=== PATIENT | male | born 1970 | race African-American/Black ===

== ENCOUNTER 2020-01-09 01:50 | Inpatient (IN) ==
[2020-01-09] MEDS ORDERED: SODIUM CHLORIDE 0.9% 1,000 ML IV STA (03:27)
[2020-01-09] MEDS ORDERED: ONDANSETRON 4 MG/2 ML VIAL IV STA (03:27)
[2020-01-09 03:58] LABS: ABG Base Excess -9.7 MMOL/L (-2.5-2.5); ABG HCO3 16.6 MMOL/L (20-26); ABG Oxygen Saturation 89.5 % (95-100); ABG PCO2 32.7 MM HG (35-48); ABG PH 7.296 (7.35-7.45); ABG PO2 61.5 MM HG (80-95); ABG TCO2 14.5 MMOL/L (23-27); Allen Test Positive; Pt O2 Delivery Device Room Air
[2020-01-09 04:17] LABS: Basophils % 0.3 % (0.0-0.8); Hematocrit 35.2 VOL% (42.0-52.0); Hemoglobin 11.6 GM/DL (14.0-18.0); Immature Granulocytes % 0.2 %; Immature Granulocytes Absolute 0.01 #; Lymphocytes # 0.9 10*3/uL (1.4-4.0); Lymphocytes % 14.9 % (21.2-54.2); Mean Corpuscular Volume 93.4 FL (87-102); Mean Platelet Volume 10.5 FL (9.6-12.0); Monocytes % 6.1 % (1.7-12.7); Neutrophils % 78.5 % (38.7-73.9); Platelet Count 163 T/CUMM (130-400); Red Blood Count 3.77 MC/CUMM (3.8-5.5); Red Cell Distribution Width 13.4 % (9.3-17.3); White Blood Count 6.1 T/CUMM (4-12)
[2020-01-09 04:37] LABS: Alanine Aminotransferase 20 U/L (16-61); Albumin 3.1 G/DL (3.4-5.0); Alkaline Phosphatase 82 U/L (45-117); Aspartate Amino Transferase 33 U/L (0-37); Bilirubin,Total < 0.39 MG/DL (0.2-1.0); Blood Urea Nitrogen 56 MG/DL (7-18); Calcium 8.1 MG/DL (8.5-10.1); Estimated Glom Filtration Rate 7 ML/MIN; Osmolality,Calculated 281.1 MOS/KG (273-304); Total Protein 7.4 G/DL (6.4-8.3)
[2020-01-09 04:47] LABS: Glucose 34 MG/DL (74-106)
[2020-01-09] MEDS ORDERED: DEXTROSE 50% 25 GM/50 ML SYRINGE IV ONE ×2 (04:47→06:30)
[2020-01-09] MEDS ORDERED: DEXTROSE 50% 25 GM/50 ML VIAL IV STA ×2 (04:47→06:33)
[2020-01-09] MEDS ORDERED: SODIUM BICARB INJ 50 MEQ in DEXTROSE 5% NACL 0.45% 1,000 ML IV SCH ×2 (05:30→08:00)
[2020-01-09] MEDS ORDERED: SODIUM BICARBONATE 50 MEQ/50 ML VIAL IV STA (05:42)
[2020-01-09] MEDS ORDERED: GLUCAGON 1 MG VIAL IM PRN (05:54)
[2020-01-09] MEDS ORDERED: ONDANSETRON 4 MG/2 ML VIAL IV PRN (05:54)
[2020-01-09] MEDS ORDERED: DEXTROSE 10% 250 ML BAG IV PRN (05:59)
[2020-01-09] MEDS ORDERED: SODIUM BICARB INJ 50 MEQ in DEXTROSE 5% 1,000 ML IV SCH (06:00)
[2020-01-09] MEDS ORDERED: SODIUM BICARBONATE 50 MEQ/50 ML VIAL IV ONE (06:00)
[2020-01-09] MEDS: SODIUM BICARB INJ 50 MEQ in DEXTROSE 5% NACL 0.45% 1,000 ML IV SCH ×2 (06:50→14:38)
[2020-01-09 07:12] LABS: Apearance,Urine Slightly Hazy (Clear); Bacteria,Urine Occasional /HPF (Few); Bilirubin,Urine Negative (Negative); Blood, Urine Small mg/dL (Negative); Glucose,Urine (UA) 50 mg/dL (Negative); Ketones,Urine Negative (Negative); Mucus,Urine Occasional /LPF (Occasional); Nitrite,Urine Negative (Negative); Protein,Urine 100 MG/DL; RBC,Urine 3 /HPF (0-4); Urine Color Yellow (Yellow); Urine Specific Gravity 1.011 (1.001-1.035); Urine Urobilinogen < 2.0 EU/DL (0.2-1.0); WBC,Urine <1 /HPF (0-6)
[2020-01-09] MEDS: INSULIN REGULAR 100 UNIT/ML SUBCUT SCH ×4 (08:38→20:28)
[2020-01-09] MEDS: DEXTROSE 10% 500 ML IV SCH ×2 (09:06→14:38)
[2020-01-09] MEDS: POTASSIUM CHLORIDE 20 MEQ TABLET PO PRN (09:22)
[2020-01-09] MEDS: amLODIPine 10 MG TABLET PO SCH (09:22)
[2020-01-09] MEDS: PANTOPRAZOLE 40 MG TABLET PO SCH (09:22)
[2020-01-09 16:17] LABS: ABG HCO3 17.9 MMOL/L (20-26); ABG Oxygen Saturation 92.6 % (95-100); ABG PCO2 27.2 MM HG (35-48); ABG PH 7.377 (7.35-7.45); ABG PO2 65.3 MM HG (80-95); ABG TCO2 14.6 MMOL/L (23-27)
[2020-01-09] MEDS ORDERED: GLUCOSE GEL 15 GM TUBE PO PRN (16:29)
[2020-01-09] MEDS: GLUCOSE GEL 15 GM TUBE PO SCH ×7 (17:21→23:50)
[2020-01-09] MEDS: SODIUM BICARB INJ 100 MEQ in DEXTROSE 10% 1,000 ML IV SCH (18:10)
[2020-01-09] MEDS: FUROSEMIDE INJ 200 MG in SODIUM CHLORIDE 0.9% 50 ML IV SCH (20:06)
[2020-01-09] MEDS ORDERED: HYDROCORTISONE 100 MG VIAL IV ONE (20:45)
[2020-01-10] MEDS: GLUCOSE GEL 15 GM TUBE PO SCH ×8 (00:21→10:33)
[2020-01-10] MEDS: FUROSEMIDE INJ 200 MG in SODIUM CHLORIDE 0.9% 50 ML IV SCH ×4 (02:40→20:40)
[2020-01-10] MEDS: HYDROCORTISONE 100 MG VIAL IV SCH ×3 (04:50→20:40)
[2020-01-10 05:26] LABS: Hematocrit 30.9 VOL% (42.0-52.0); Hemoglobin 10.6 GM/DL (14.0-18.0); Immature Granulocytes % 0.5 %; Immature Granulocytes Absolute 0.02 #; Lymphocytes # 0.5 10*3/uL (1.4-4.0); Lymphocytes % 12.2 % (21.2-54.2); Mean Corpuscular HGB Conc 34.3 GM/DL (32-36); Mean Platelet Volume 11.3 FL (9.6-12.0); Monocytes % 3.5 % (1.7-12.7); Neutrophils % 83.8 % (38.7-73.9); Platelet Count 136 T/CUMM (130-400); Red Blood Count 3.47 MC/CUMM (3.8-5.5); Red Cell Distribution Width 13.1 % (9.3-17.3)
[2020-01-10 05:52] LABS: Calcium 7.1 MG/DL (8.5-10.1); Osmolality,Calculated 281.8 MOS/KG (273-304)
[2020-01-10] MEDS: SODIUM BICARB INJ 100 MEQ in DEXTROSE 10% 1,000 ML IV SCH (05:55)
[2020-01-10] MEDS: INSULIN REGULAR 100 UNIT/ML SUBCUT SCH ×5 (07:48→23:45)
[2020-01-10] MEDS: amLODIPine 10 MG TABLET PO SCH (08:34)
[2020-01-10] MEDS: PANTOPRAZOLE 40 MG TABLET PO SCH (08:35)
[2020-01-10] MEDS ORDERED: metOLazone 5 MG TABLET PO SCH ×2 (09:00→12:55)
[2020-01-10] MEDS: carvediloL 12.5 MG TABLET PO SCH ×2 (09:14→20:45)
[2020-01-10] MEDS: ASPIRIN EC 81 MG TABLET PO SCH (09:14)
[2020-01-10] MEDS: SODIUM BICARB INJ 100 MEQ in STERILE WATER INJ 1,000 ML IV SCH ×2 (09:57→21:34)
[2020-01-10] MEDS: POTASSIUM CHLORIDE 20 MEQ TABLET PO PRN ×3 (14:19→19:20)
[2020-01-10] MEDS: ENOXAPARIN 30 MG/0.3 ML SYRINGE SUBCUT SCH (16:51)
[2020-01-11] MEDS: INSULIN REGULAR 100 UNIT/ML SUBCUT SCH ×5 (04:01→22:11)
[2020-01-11 04:46] LABS: Basophils % 0.4 % (0.0-0.8); Hematocrit 32.4 VOL% (42.0-52.0); Hemoglobin 11.3 GM/DL (14.0-18.0); Immature Granulocytes % 0.4 %; Immature Granulocytes Absolute 0.02 #; Lymphocytes # 1.5 10*3/uL (1.4-4.0); Lymphocytes % 27.6 % (21.2-54.2); Mean Corpuscular HGB Conc 34.9 GM/DL (32-36); Mean Corpuscular Volume 88.5 FL (87-102); Mean Platelet Volume 11.2 FL (9.6-12.0); Monocytes % 5.6 % (1.7-12.7); Platelet Count 146 T/CUMM (130-400); Red Blood Count 3.66 MC/CUMM (3.8-5.5); Red Cell Distribution Width 12.9 % (9.3-17.3); White Blood Count 5.5 T/CUMM (4-12)
[2020-01-11 05:15] LABS: Calcium 7.9 MG/DL (8.5-10.1); Osmolality,Calculated 276.8 MOS/KG (273-304)
[2020-01-11] MEDS: HYDROCORTISONE 100 MG VIAL IV SCH (05:32)
[2020-01-11] MEDS: POTASSIUM CHLORIDE 20 MEQ TABLET PO PRN (06:52)
[2020-01-11] MEDS: SODIUM BICARB INJ 100 MEQ in STERILE WATER INJ 1,000 ML IV SCH (08:05)
[2020-01-11] MEDS: PANTOPRAZOLE 40 MG TABLET PO SCH (08:06)
[2020-01-11] MEDS: ASPIRIN EC 81 MG TABLET PO SCH (08:06)
[2020-01-11] MEDS: carvediloL 12.5 MG TABLET PO SCH ×2 (08:06→22:11)
[2020-01-11] MEDS: amLODIPine 10 MG TABLET PO SCH (08:06)
[2020-01-11] MEDS: FUROSEMIDE INJ 200 MG in SODIUM CHLORIDE 0.9% 50 ML IV SCH (08:06)
[2020-01-11] MEDS: HYDROCORTISONE 10 MG TABLET PO SCH ×2 (16:30→22:11)
[2020-01-11] MEDS: ENOXAPARIN 30 MG/0.3 ML SYRINGE SUBCUT SCH (16:30)
[2020-01-12 05:08] LABS: Calcium 8.1 MG/DL (8.5-10.1); Osmolality,Calculated 279.9 MOS/KG (273-304)
[2020-01-12] MEDS: ASPIRIN EC 81 MG TABLET PO SCH (09:42)
[2020-01-12] MEDS: INSULIN REGULAR 100 UNIT/ML SUBCUT SCH ×4 (09:42→21:27)
[2020-01-12] MEDS: HYDROCORTISONE 10 MG TABLET PO SCH ×3 (09:42→21:24)
[2020-01-12] MEDS: carvediloL 12.5 MG TABLET PO SCH ×2 (09:43→21:24)
[2020-01-12] MEDS: amLODIPine 10 MG TABLET PO SCH (09:43)
[2020-01-12] MEDS: PANTOPRAZOLE 40 MG TABLET PO SCH (09:43)
[2020-01-12] MEDS: ENOXAPARIN 30 MG/0.3 ML SYRINGE SUBCUT SCH (16:16)
[2020-01-12] MEDS ORDERED: MAGNESIUM CHLORIDE 64 MG TABLET PO SCH (21:00)
[2020-01-13 05:03] LABS: Hematocrit 33.9 VOL% (42.0-52.0); Hemoglobin 11.5 GM/DL (14.0-18.0); Immature Granulocytes % 0.7 %; Immature Granulocytes Absolute 0.04 #; Lymphocytes # 1.2 10*3/uL (1.4-4.0); Lymphocytes % 20.8 % (21.2-54.2); Mean Corpuscular HGB Conc 33.9 GM/DL (32-36); Mean Corpuscular Volume 90.9 FL (87-102); Mean Platelet Volume 11.8 FL (9.6-12.0); Monocytes % 4.9 % (1.7-12.7); Neutrophils % 73.6 % (38.7-73.9); Platelet Count 179 T/CUMM (130-400); Red Blood Count 3.73 MC/CUMM (3.8-5.5); Red Cell Distribution Width 12.7 % (9.3-17.3)
[2020-01-13 05:33] LABS: Osmolality,Calculated 287.7 MOS/KG (273-304)
[2020-01-13 05:39] LABS: Hypochromasia Slight
[2020-01-13 05:40] LABS: Microcytosis Slight; Ovalocytes Slight; Platelet Estimate Adequate
[2020-01-13 07:57] VITALS: BP 109/70
[2020-01-13] MEDS ORDERED: HYDROCORTISONE 10 MG TABLET PO SCH (21:00)
== END 2020-01-13 08:00 | disposition left against medical advice (07) | DRG 682 ==
LOC: N.ED 01:50 → SUATTDRO 05:54 → SUPCPDRO 05:54 → N.EDINP 05:54 → N.5E 06:17 → N.CC 16:50 → N.5E 01-11 14:52
PROVIDERS: ADMIT Internal Medicine; ATTEND Internal Medicine

== ENCOUNTER 2020-02-02 16:04 | Observation (INO) ==
[2020-02-02] MEDS ORDERED: DEXTROSE 10% 250 ML BAG IV PRN (16:27)
[2020-02-02] MEDS ORDERED: GLUCAGON 1 MG VIAL IM PRN (16:27)
[2020-02-02 17:10] LABS: Basophils % 0.2 % (0.0-0.8); Eosinophils % 0.6 % (0.00-10.9); Hematocrit 35.5 VOL% (42.0-52.0); Hemoglobin 11.1 GM/DL (14.0-18.0); Immature Granulocytes % 0.3 %; Immature Granulocytes Absolute 0.02 #; Lymphocytes # 0.9 10*3/uL (1.4-4.0); Lymphocytes % 13.9 % (21.2-54.2); Mean Corpuscular HGB Conc 31.3 GM/DL (32-36); Mean Corpuscular Volume 96.2 FL (87-102); Mean Platelet Volume 10.3 FL (9.6-12.0); Monocytes % 3.8 % (1.7-12.7); Neutrophils % 81.2 % (38.7-73.9); Platelet Count 210 T/CUMM (130-400); Red Blood Count 3.69 MC/CUMM (3.8-5.5); Red Cell Distribution Width 14.1 % (9.3-17.3); White Blood Count 6.4 T/CUMM (4-12)
[2020-02-02 17:26] LABS: Calcium 9.5 MG/DL (8.5-10.1); Osmolality,Calculated 278.8 MOS/KG (273-304)
[2020-02-02] MEDS ORDERED: DEXTROSE 50% 25 GM/50 ML VIAL IV STA (19:11)
[2020-02-02] MEDS ORDERED: DEXTROSE 50% 25 GM/50 ML SYRINGE IV ONE (19:14)
[2020-02-02] MEDS: DEXTROSE 10% 250 ML IV SCH (19:41)
[2020-02-02] MEDS ORDERED: ACETAMINOPHEN 325 MG TABLET PO PRN (19:51)
[2020-02-02] MEDS ORDERED: ONDANSETRON 4 MG/2 ML VIAL IV PRN (19:51)
[2020-02-02 19:56] LABS: Apearance,Urine CLEAR (Clear); Bacteria,Urine Occasional /HPF (Few); Bilirubin,Urine Negative (Negative); Blood, Urine Small mg/dL (Negative); Glucose,Urine (UA) 50 mg/dL (Negative); Hyaline Casts,Urine 3 /LPF (0-3); Ketones,Urine Negative (Negative); Mucus,Urine Occasional /LPF (Occasional); Nitrite,Urine Negative (Negative); Protein,Urine >=500 MG/DL; RBC,Urine 2 /HPF (0-4); Sperm,Urine Occasional /HPF (Negative); Urine Color Yellow (Yellow); Urine Specific Gravity 1.014 (1.001-1.035); Urine Urobilinogen < 2.0 EU/DL (0.2-1.0); WBC,Urine 2 /HPF (0-6)
[2020-02-02] MEDS: INSULIN REGULAR 100 UNIT/ML SUBCUT SCH (21:39)
[2020-02-02] MEDS: ENOXAPARIN 30 MG/0.3 ML SYRINGE SUBCUT SCH (23:47)
[2020-02-03] MEDS: DEXTROSE 10% 500 ML IV SCH ×2 (00:36→18:14)
[2020-02-03 08:33] LABS: Basophils % 0.4 % (0.0-0.8); Eosinophils # 0.2 10*3/uL (0.0-0.87); Eosinophils % 3.2 % (0.00-10.9); Hematocrit 30.9 VOL% (42.0-52.0); Hemoglobin 9.7 GM/DL (14.0-18.0); Immature Granulocytes % 0.4 %; Immature Granulocytes Absolute 0.02 #; Lymphocytes # 1.7 10*3/uL (1.4-4.0); Lymphocytes % 33.7 % (21.2-54.2); Mean Corpuscular HGB Conc 31.4 GM/DL (32-36); Mean Platelet Volume 10.4 FL (9.6-12.0); Monocytes % 5.2 % (1.7-12.7); Neutrophils % 57.1 % (38.7-73.9); Platelet Count 188 T/CUMM (130-400); Red Blood Count 3.22 MC/CUMM (3.8-5.5); Red Cell Distribution Width 14.3 % (9.3-17.3)
[2020-02-03 08:49] LABS: Calcium 8.8 MG/DL (8.5-10.1); Osmolality,Calculated 276.1 MOS/KG (273-304)
[2020-02-03] MEDS: ASPIRIN EC 81 MG TABLET PO SCH (10:31)
[2020-02-03] MEDS: LISINOPRIL/HCTZ 20-12.5 MG TABLET PO SCH (10:31)
[2020-02-03] MEDS: amLODIPine 10 MG TABLET PO SCH (10:31)
[2020-02-03] MEDS: PANTOPRAZOLE 40 MG TABLET PO SCH (10:32)
[2020-02-03] MEDS: INSULIN REGULAR 100 UNIT/ML SUBCUT SCH ×4 (10:33→20:43)
[2020-02-03] MEDS: DEXTROSE 10% 1,000 ML IV SCH (18:14)
[2020-02-03] MEDS: DEXTROSE 10% 250 ML IV SCH (20:42)
[2020-02-03] MEDS: ENOXAPARIN 30 MG/0.3 ML SYRINGE SUBCUT SCH (20:49)
[2020-02-04] MEDS: INSULIN REGULAR 100 UNIT/ML SUBCUT SCH ×2 (09:24→13:05)
[2020-02-04] MEDS: amLODIPine 10 MG TABLET PO SCH (09:25)
[2020-02-04] MEDS: PANTOPRAZOLE 40 MG TABLET PO SCH (09:25)
[2020-02-04] MEDS: LISINOPRIL/HCTZ 20-12.5 MG TABLET PO SCH (09:25)
[2020-02-04] MEDS: ASPIRIN EC 81 MG TABLET PO SCH (09:25)
[2020-02-04] MEDS: DEXTROSE 10% 1,000 ML IV SCH (13:02)
[2020-02-04 13:11] VITALS: BP 125/97
== END 2020-02-04 14:30 | disposition home or self-care (01) ==
LOC: EDUNIT# → EDBD → N.EDINP 16:04 → N.ED 16:04 → SUATTDRO 19:51 → N.EDINP 22:05 → N.4E 22:09
PROVIDERS: ADMIT Internal Medicine; ATTEND Internal Medicine Nephrology

== ENCOUNTER 2022-07-10 11:55 | Inpatient (IN) ==
[2022-07-10 13:13] LABS: Basophils % 0.2 % (0.0-0.8); Eosinophils % 0.2 % (0.00-10.9); Hematocrit 23.5 VOL% (42.0-52.0); Hemoglobin 7.6 GM/DL (14.0-18.0); Immature Granulocytes % 0.8 %; Immature Granulocytes Absolute 0.07 #; Lymphocytes # 0.4 10*3/uL (1.4-4.0); Lymphocytes % 4.5 % (21.2-54.2); Mean Corpuscular HGB Conc 32.3 GM/DL (32-36); Mean Platelet Volume 10.7 FL (9.6-12.0); Monocytes # 0.2 10*3/uL (0.11-0.8); Monocytes % 2.4 % (1.7-12.7); Neutrophils % 91.9 % (38.7-73.9); Platelet Count 183 T/CUMM (130-400); Red Cell Distribution Width 14.5 % (9.3-17.3); White Blood Count 8.8 T/CUMM (4-12)
[2022-07-10 13:30] LABS: Calcium 7.4 MG/DL (8.5-10.1); Osmolality,Calculated 299.1 MOS/KG (273-304); Potassium 4.5 MMOL/L (3.5-5.1)
[2022-07-10] MEDS ORDERED: DEXTROSE 50% 25 GM/50 ML SYRINGE IV ONE (13:36)
[2022-07-10] MEDS ORDERED: DEXTROSE 50% 25 GM/50 ML VIAL IV STA (13:39)
[2022-07-10 14:35] LABS: Lymphocytes 4 % (20-55); Polychromasia Slight; Total Cells Counted 100
[2022-07-10 14:36] LABS: Burr Cells Slight; Ovalocytes Few; Platelet Estimate Adequate; Schistocytes Slight
[2022-07-10] MEDS ORDERED: SODIUM CHLORIDE 0.9% 1,000 ML IV PRN (14:37)
[2022-07-10] MEDS ORDERED: hydrALAZINE 20 MG/1 ML VIAL IV PRN (14:52)
[2022-07-10] MEDS ORDERED: ONDANSETRON 4 MG/2 ML VIAL IV PRN (14:52)
[2022-07-10] MEDS ORDERED: MAGNESIUM SULFATE IV ONE (15:00)
[2022-07-10] MEDS: MAGNESIUM SULF RIDER 1 GM/100 ML PREMIX IV SCH ×3 (15:13→22:00)
[2022-07-10] MEDS: INSULIN LISPRO 100 UNIT/ML SUBCUT SCH ×2 (16:39→20:50)
[2022-07-10] MEDS: DOCUSATE SODIUM 100 MG CAPSULE PO SCH ×2 (16:58→20:49)
[2022-07-10] MEDS: PANTOPRAZOLE 40 MG TABLET PO SCH (16:58)
[2022-07-10 17:46] LABS: RBC,Urine 1 /HPF (0-4); Squamous Epithelial Cell,Urine Occasional /HPF (0-10)
[2022-07-10 17:47] LABS: Bilirubin,Urine Negative (Negative); Blood, Urine Trace mg/dL (Negative); Glucose,Urine (UA) 100 mg/dL (Negative); Ketones,Urine Negative (Negative); Nitrite,Urine Negative (Negative); Protein,Urine >=300 mg/dL (Negative); Urine Appearance Clear (Clear); Urine Color Yellow (Yellow); Urine Urobilinogen 0.2 eU/dL (<2.0); Urine pH 8.5 (4.5-8.0)
[2022-07-10] MEDS: ALBUTEROL/IPRATROPIUM 3 ML NEB RESP TX SCH (19:46)
[2022-07-10] MEDS: ENOXAPARIN 30 MG/0.3 ML SYRINGE SUBCUT SCH (20:50)
[2022-07-10] MEDS: SODIUM BICARBONATE 650 MG TABLET PO SCH (23:20)
[2022-07-10] MEDS: SODIUM BICARB INJ 100 MEQ in DEXTROSE 5% NACL 0.22% 1,000 ML IV SCH (23:21)
[2022-07-11] MEDS: ALBUTEROL/IPRATROPIUM 3 ML NEB RESP TX SCH ×4 (00:48→19:28)
[2022-07-11 04:34] LABS: Basophils % 0.1 % (0.0-0.8); Eosinophils # 0.1 10*3/uL (0.0-0.87); Eosinophils % 1.1 % (0.00-10.9); Hematocrit 22.5 VOL% (42.0-52.0); Hemoglobin 7.6 GM/DL (14.0-18.0); Immature Granulocytes % 0.8 %; Immature Granulocytes Absolute 0.07 #; Lymphocytes # 0.3 10*3/uL (1.4-4.0); Lymphocytes % 3.4 % (21.2-54.2); Mean Corpuscular HGB Conc 33.8 GM/DL (32-36); Mean Corpuscular Volume 90.7 FL (87-102); Mean Platelet Volume 10.8 FL (9.6-12.0); Monocytes # 0.3 10*3/uL (0.11-0.8); Monocytes % 3.5 % (1.7-12.7); Neutrophils % 91.1 % (38.7-73.9); Platelet Count 174 T/CUMM (130-400); Red Blood Count 2.48 MC/CUMM (3.8-5.5); Red Cell Distribution Width 14.6 % (9.3-17.3); White Blood Count 9.1 T/CUMM (4-12)
[2022-07-11 04:57] LABS: Eosinophils 1 % (0-10); Hypochromia 1+; Lymphocytes 3 % (20-55); Ovalocytes Slight; Platelet Estimate Normal; Total Cells Counted 100
[2022-07-11 05:15] LABS: Alanine Aminotransferase 15 U/L (16-61); Albumin 3.4 G/DL (3.4-5.0); Alkaline Phosphatase 112 U/L (45-117); Aspartate Amino Transferase 17 U/L (0-37); Bilirubin,Total < 0.39 MG/DL (0.20-1.00); Blood Urea Nitrogen 103 MG/DL (7-18); Calcium 6.9 MG/DL (8.5-10.1); Carbon Dioxide 9 MMOL/L (21-32); Chloride 108 MMOL/L (98-107); Cholesterol 124 MG/DL (50-200); HDL Cholesterol 40 MG/DL (40-60); Osmolality,Calculated 298.1 MOS/KG (273-304); Potassium 4.4 MMOL/L (3.5-5.1); Sodium 135 MMOL/L (136-145); Triglycerides 81 MG/DL (2-150); VLDL Cholesterol 16.2 MG/DL
[2022-07-11 05:18] LABS: Glucose 45 MG/DL (74-106)
[2022-07-11] MEDS: GLUCAGON 1 MG VIAL IM PRN ×2 (05:44→11:16)
[2022-07-11] MEDS: DEXTROSE 10% 250 ML BAG IV PRN ×3 (05:59→11:16)
[2022-07-11] MEDS: INSULIN LISPRO 100 UNIT/ML SUBCUT SCH ×4 (09:07→20:09)
[2022-07-11] MEDS: SODIUM BICARB INJ 100 MEQ in DEXTROSE 5% NACL 0.22% 1,000 ML IV SCH ×2 (09:07→19:18)
[2022-07-11] MEDS: SODIUM BICARBONATE 650 MG TABLET PO SCH ×3 (09:09→20:09)
[2022-07-11] MEDS: PANTOPRAZOLE 40 MG TABLET PO SCH (09:09)
[2022-07-11] MEDS: DOCUSATE SODIUM 100 MG CAPSULE PO SCH ×2 (09:09→20:09)
[2022-07-11] MEDS ORDERED: ETOMIDATE 40 MG/20 ML VIAL IV ONE (12:44)
[2022-07-11] MEDS ORDERED: propofoL 200 MG/20 ML VIAL IV ONE (12:44)
[2022-07-11] MEDS ORDERED: MIDAZOLAM 2 MG/2 ML VIAL ONE (12:44)
[2022-07-11] MEDS ORDERED: fentaNYL 100 MCG/2 ML VIAL ONE (12:44)
[2022-07-11] MEDS ORDERED: LIDOCAINE 2% 5 ML VIAL ONE (12:44)
[2022-07-11] MEDS ORDERED: CLINDAMYCIN INJ 900 MG/50 ML PREMIX IV ONE (12:50)
[2022-07-11] MEDS ORDERED: HEPARIN 5,000 UNIT/1 ML VIAL ONE (12:53)
[2022-07-11] MEDS ORDERED: TISSUE ADHESIVE 1 EACH APPLICATOR TOP ONE (12:53)
[2022-07-11] MEDS ORDERED: BUPIVACAINE 0.5% 50 ML VIAL ONE (12:53)
[2022-07-11] MEDS ORDERED: LIDOCAINE 1%/EPI INJ 20 ML VIAL ONE (12:53)
[2022-07-11] MEDS: amLODIPine 10 MG TABLET PO SCH (13:00)
[2022-07-11] MEDS: ATORVASTATIN 40 MG TABLET PO SCH (13:00)
[2022-07-11] MEDS ORDERED: DEXTROSE 50% 25 GM/50 ML SYRINGE IV ONE ×4 (13:36→16:50)
[2022-07-11 14:38] LABS: Hepatitis B Core IgM Quant 0.16 Index; Hepatitis B Surface Ag Quant < 0.10 Index; Hepatitis B Surface Ag Result Non-Reactive (NonReactive); Hepatitis C Virus Ab Quant 0.06 Index; Hepatitis C Virus Ab Result Non-Reactive (NonReactive)
[2022-07-11] MEDS: HYDROCORTISONE 100 MG VIAL IV SCH ×2 (15:05→20:09)
[2022-07-11] MEDS ORDERED: DEXTROSE 50% 25 GM/50 ML VIAL IV PRN (15:17)
[2022-07-11] MEDS: DEXTROSE 10% 1,000 ML IV SCH (16:01)
[2022-07-11] MEDS ORDERED: DEXTROSE 50% 25 GM/50 ML SYRINGE IV PRN (16:48)
[2022-07-11] MEDS ORDERED: HEPARIN 10,000 UNIT/10 ML VIAL IV ONE (20:00)
[2022-07-11] MEDS ORDERED: ACETAMINOPHEN 325 MG TABLET PO PRN (20:00)
[2022-07-11] MEDS: ENOXAPARIN 30 MG/0.3 ML SYRINGE SUBCUT SCH (20:09)
[2022-07-12] MEDS: ALBUTEROL/IPRATROPIUM 3 ML NEB RESP TX SCH ×4 (01:49→19:15)
[2022-07-12 04:06] LABS: Hematocrit 18.5 VOL% (42.0-52.0); Immature Granulocytes % 0.7 %; Immature Granulocytes Absolute 0.04 #; Lymphocytes # 0.2 10*3/uL (1.4-4.0); Lymphocytes % 3.4 % (21.2-54.2); Mean Corpuscular HGB Conc 34.1 GM/DL (32-36); Mean Corpuscular Volume 88.5 FL (87-102); Mean Platelet Volume 11.4 FL (9.6-12.0); Monocytes # 0.1 10*3/uL (0.11-0.8); Neutrophils % 93.9 % (38.7-73.9); Platelet Count 113 T/CUMM (130-400); Red Blood Count 2.09 MC/CUMM (3.8-5.5); Red Cell Distribution Width 14.1 % (9.3-17.3); White Blood Count 5.6 T/CUMM (4-12)
[2022-07-12 04:08] LABS: Hemoglobin 6.3 GM/DL (14.0-18.0)
[2022-07-12] MEDS: SODIUM BICARB INJ 100 MEQ in DEXTROSE 5% NACL 0.22% 1,000 ML IV SCH (04:10)
[2022-07-12] MEDS: DEXTROSE 10% 1,000 ML IV SCH (04:10)
[2022-07-12] MEDS: HYDROCORTISONE 100 MG VIAL IV SCH ×3 (04:24→21:22)
[2022-07-12 04:28] LABS: Alanine Aminotransferase 11 U/L (16-61); Albumin 2.8 G/DL (3.4-5.0); Alkaline Phosphatase 87 U/L (45-117); Aspartate Amino Transferase 21 U/L (0-37); Bilirubin,Total < 0.39 MG/DL (0.20-1.00); Blood Urea Nitrogen 43 MG/DL (7-18); Calcium 7.7 MG/DL (8.5-10.1); Carbon Dioxide 20 MMOL/L (21-32); Chloride 103 MMOL/L (98-107); Glucose 225 MG/DL (74-106); Osmolality,Calculated 285.2 MOS/KG (273-304); Potassium 3.5 MMOL/L (3.5-5.1); Sodium 134 MMOL/L (136-145); Total Protein 5.7 G/DL (6.4-8.2)
[2022-07-12 04:39] LABS: Band Neutrophils 1 % (0-10); Hypochromia Slight; Lymphocytes 2 % (20-55); Microcytosis Slight; Total Cells Counted 100
[2022-07-12] MEDS ORDERED: SODIUM CHLORIDE 0.9% 1,000 ML IV PRN (07:46)
[2022-07-12] MEDS: INSULIN LISPRO 100 UNIT/ML SUBCUT SCH ×5 (08:17→21:21)
[2022-07-12] MEDS: amLODIPine 10 MG TABLET PO SCH (09:44)
[2022-07-12] MEDS: PANTOPRAZOLE 40 MG TABLET PO SCH (09:44)
[2022-07-12] MEDS: ATORVASTATIN 40 MG TABLET PO SCH (09:44)
[2022-07-12] MEDS: SODIUM BICARBONATE 650 MG TABLET PO SCH ×3 (09:44→21:21)
[2022-07-12] MEDS: DOCUSATE SODIUM 100 MG CAPSULE PO SCH ×2 (09:46→21:21)
[2022-07-12] MEDS ORDERED: MAGNESIUM SULF RIDER 2 GM/50 ML PREMIX IV ONE (10:04)
[2022-07-12] MEDS ORDERED: POTASSIUM CHLORIDE 20 MEQ TABLET PO ONE (10:04)
[2022-07-12] MEDS: ENOXAPARIN 30 MG/0.3 ML SYRINGE SUBCUT SCH (21:22)
[2022-07-12] MEDS: ZALEPLON 5 MG CAPSULE PO PRN (22:33)
[2022-07-13] MEDS: ALBUTEROL/IPRATROPIUM 3 ML NEB RESP TX SCH ×4 (00:15→19:08)
[2022-07-13] MEDS: INSULIN LISPRO 100 UNIT/ML SUBCUT SCH ×6 (00:31→20:54)
[2022-07-13 06:21] LABS: Hematocrit 21.4 VOL% (42.0-52.0); Hemoglobin 7.2 GM/DL (14.0-18.0); Immature Granulocytes % 0.8 %; Immature Granulocytes Absolute 0.07 #; Lymphocytes # 0.6 10*3/uL (1.4-4.0); Lymphocytes % 6.8 % (21.2-54.2); Mean Corpuscular HGB Conc 33.6 GM/DL (32-36); Mean Corpuscular Volume 91.1 FL (87-102); Mean Platelet Volume 11.4 FL (9.6-12.0); Monocytes # 0.5 10*3/uL (0.11-0.8); Monocytes % 5.2 % (1.7-12.7); Neutrophils % 87.2 % (38.7-73.9); Platelet Count 118 T/CUMM (130-400); Red Blood Count 2.35 MC/CUMM (3.8-5.5); White Blood Count 8.6 T/CUMM (4-12)
[2022-07-13 06:34] LABS: Alanine Aminotransferase 14 U/L (16-61); Albumin 2.8 G/DL (3.4-5.0); Alkaline Phosphatase 88 U/L (45-117); Aspartate Amino Transferase 25 U/L (0-37); Bilirubin,Total < 0.39 MG/DL (0.20-1.00); Blood Urea Nitrogen 57 MG/DL (7-18); Calcium 7.8 MG/DL (8.5-10.1); Carbon Dioxide 22 MMOL/L (21-32); Chloride 104 MMOL/L (98-107); Glucose 208 MG/DL (74-106); Osmolality,Calculated 294.8 MOS/KG (273-304); Potassium 4.6 MMOL/L (3.5-5.1); Sodium 137 MMOL/L (136-145); Total Protein 5.9 G/DL (6.4-8.2)
[2022-07-13] MEDS ORDERED: EPOETIN ALFA-EPBX 3,000 UNIT/ML VIAL IV PRN (09:20)
[2022-07-13] MEDS: DOCUSATE SODIUM 100 MG CAPSULE PO SCH ×2 (10:03→20:54)
[2022-07-13] MEDS: HYDROCORTISONE 100 MG VIAL IV SCH (10:03)
[2022-07-13] MEDS: SODIUM BICARBONATE 650 MG TABLET PO SCH (10:03)
[2022-07-13] MEDS ORDERED: HEPARIN 10,000 UNIT/10 ML VIAL IV SCH (10:45)
[2022-07-13] MEDS: ATORVASTATIN 40 MG TABLET PO SCH (15:11)
[2022-07-13] MEDS: amLODIPine 10 MG TABLET PO SCH (15:11)
[2022-07-13] MEDS: PANTOPRAZOLE 40 MG TABLET PO SCH (15:19)
[2022-07-13] MEDS: ZALEPLON 5 MG CAPSULE PO PRN (20:55)
[2022-07-13] MEDS: HEPARIN 5,000 UNIT/1 ML VIAL SUBCUT SCH (21:55)
[2022-07-14] MEDS: ALBUTEROL/IPRATROPIUM 3 ML NEB RESP TX SCH ×4 (00:08→19:12)
[2022-07-14 06:05] LABS: Basophils % 0.2 % (0.0-0.8); Eosinophils # 0.3 10*3/uL (0.0-0.87); Eosinophils % 3.3 % (0.00-10.9); Hematocrit 25.6 VOL% (42.0-52.0); Hemoglobin 8.2 GM/DL (14.0-18.0); Immature Granulocytes % 1.1 %; Immature Granulocytes Absolute 0.09 #; Lymphocytes % 12.5 % (21.2-54.2); Mean Corpuscular Volume 91.4 FL (87-102); Mean Platelet Volume 10.9 FL (9.6-12.0); Monocytes # 0.6 10*3/uL (0.11-0.8); Monocytes % 7.2 % (1.7-12.7); Neutrophils % 75.7 % (38.7-73.9); Platelet Count 95 T/CUMM (130-400); Red Cell Distribution Width 16.7 % (9.3-17.3); White Blood Count 8.1 T/CUMM (4-12)
[2022-07-14 06:17] LABS: Calcium 7.3 MG/DL (8.5-10.1); Osmolality,Calculated 281.8 MOS/KG (273-304); Potassium 4.9 MMOL/L (3.5-5.1)
[2022-07-14 06:23] LABS: Hypochromia 1+
[2022-07-14 06:24] LABS: Microcytosis 1+; Platelet Estimate Decreased
[2022-07-14] MEDS: INSULIN LISPRO 100 UNIT/ML SUBCUT SCH ×4 (08:22→21:40)
[2022-07-14] MEDS: HEPARIN 5,000 UNIT/1 ML VIAL SUBCUT SCH ×2 (09:00→21:38)
[2022-07-14] MEDS: DOCUSATE SODIUM 100 MG CAPSULE PO SCH ×2 (09:00→21:37)
[2022-07-14] MEDS: amLODIPine 10 MG TABLET PO SCH (14:34)
[2022-07-14] MEDS: ATORVASTATIN 40 MG TABLET PO SCH (14:34)
[2022-07-14] MEDS: ASPIRIN EC 81 MG TABLET PO SCH (14:34)
[2022-07-14] MEDS: ZALEPLON 5 MG CAPSULE PO PRN (21:37)
[2022-07-15] MEDS: ALBUTEROL/IPRATROPIUM 3 ML NEB RESP TX SCH ×2 (00:05→07:30)
[2022-07-15 06:55] LABS: Basophils % 0.6 % (0.0-0.8); Eosinophils # 0.4 10*3/uL (0.0-0.87); Eosinophils % 5.6 % (0.00-10.9); Hematocrit 26.2 VOL% (42.0-52.0); Hemoglobin 8.3 GM/DL (14.0-18.0); Immature Granulocytes % 1.1 %; Immature Granulocytes Absolute 0.08 #; Lymphocytes # 1.5 10*3/uL (1.4-4.0); Lymphocytes % 20.9 % (21.2-54.2); Mean Corpuscular HGB Conc 31.7 GM/DL (32-36); Mean Corpuscular Volume 93.9 FL (87-102); Mean Platelet Volume 11.8 FL (9.6-12.0); Monocytes # 0.7 10*3/uL (0.11-0.8); Monocytes % 9.4 % (1.7-12.7); Neutrophils % 62.4 % (38.7-73.9); Platelet Count 104 T/CUMM (130-400); Red Blood Count 2.79 MC/CUMM (3.8-5.5); Red Cell Distribution Width 16.4 % (9.3-17.3); White Blood Count 7.1 T/CUMM (4-12)
[2022-07-15 07:15] LABS: Calcium 7.9 MG/DL (8.5-10.1); Osmolality,Calculated 279.8 MOS/KG (273-304); Potassium 4.8 MMOL/L (3.5-5.1)
[2022-07-15] MEDS: INSULIN LISPRO 100 UNIT/ML SUBCUT SCH ×2 (07:50→12:43)
[2022-07-15 08:18] VITALS: BP 122/72
[2022-07-15] MEDS: ATORVASTATIN 40 MG TABLET PO SCH (09:37)
[2022-07-15] MEDS: DOCUSATE SODIUM 100 MG CAPSULE PO SCH (09:37)
[2022-07-15] MEDS: amLODIPine 10 MG TABLET PO SCH (09:37)
[2022-07-15] MEDS: ASPIRIN EC 81 MG TABLET PO SCH (09:38)
[2022-07-15] MEDS: HEPARIN 5,000 UNIT/1 ML VIAL SUBCUT SCH (09:41)
== END 2022-07-15 13:08 | disposition home or self-care (01) | DRG 674 ==
LOC: N.ED 11:55 → N.EDINP 13:52 → SUATTDRO 14:52 → N.EDINP 14:52 → N.TELEN 15:59 → N.ICU 07-11 14:09 → N.5E 07-12 14:56
PROVIDERS: ADMIT Internal Medicine; ATTEND Internal Medicine

== ENCOUNTER 2022-07-20 08:02 | Inpatient (IN) ==
[2022-07-20 08:38] LABS: Basophils % 0.2 % (0.0-0.8); Eosinophils % 0.2 % (0.00-10.9); Hematocrit 30.3 VOL% (42.0-52.0); Hemoglobin 9.4 GM/DL (14.0-18.0); Immature Granulocytes % 1.5 %; Immature Granulocytes Absolute 0.14 #; Lymphocytes # 0.7 10*3/uL (1.4-4.0); Lymphocytes % 7.6 % (21.2-54.2); Mean Corpuscular Volume 95.9 FL (87-102); Mean Platelet Volume 10.7 FL (9.6-12.0); Monocytes # 0.4 10*3/uL (0.11-0.8); Monocytes % 4.5 % (1.7-12.7); Platelet Count 185 T/CUMM (130-400); Red Blood Count 3.16 MC/CUMM (3.8-5.5); Red Cell Distribution Width 15.4 % (9.3-17.3); White Blood Count 9.6 T/CUMM (4-12)
[2022-07-20 08:46] LABS: Arterial Base Excess iSTAT 0 MMOL/L (-2.5-2.5); Arterial Bicarbonate iSTAT 25.1 MMOL/L (20-26); Arterial O2 Saturation iSTAT 95 % (95-100); Arterial PCO2 iSTAT 42 MM HG (35-48); Arterial PO2 iSTAT 78 MM HG (80-95); Arterial Total CO2 iSTAT 26 MMO/L (23-27); Arterial pH iSTAT 7.386 (7.35-7.45)
[2022-07-20] MEDS ORDERED: AMMONIA INHALANT 1 EACH AMP INH ONE (08:47)
[2022-07-20 08:51] LABS: Albumin 3.4 G/DL (3.4-5.0); Bilirubin,Total 0.4 MG/DL (0.20-1.00); Calcium 8.6 MG/DL (8.5-10.1); Potassium 4.2 MMOL/L (3.5-5.1); Total Protein 7.6 G/DL (6.4-8.2)
[2022-07-20 08:58] LABS: Bacteria,Urine Occasional /HPF (Few); Bilirubin,Urine Negative (Negative); Blood, Urine Negative (Negative); Glucose,Urine (UA) Negative (Negative); Ketones,Urine Negative (Negative); Nitrite,Urine Negative (Negative); Protein,Urine >=300 mg/dL (Negative); RBC,Urine 2 /HPF (0-4); Squamous Epithelial Cell,Urine Occasional /HPF (0-10); Urine Appearance Clear (Clear); Urine Color Yellow (Yellow); Urine Urobilinogen 0.2 eU/dL (<2.0); Urine pH 8.5 (4.5-8.0)
[2022-07-20 09:04] LABS: Barbiturates Screen,Urine Negative (Negative); Benzodiazepines Screen,Urine Negative (Negative); Cannabinoid Screen,Urine Negative (Negative); Opiate Screen,Urine Negative (Negative); Phencyclidine Screen,Urine Negative (Negative)
[2022-07-20] MEDS ORDERED: DEXTROSE 50% 25 GM/50 ML VIAL IV STA (11:15)
[2022-07-20] MEDS ORDERED: DEXTROSE 50% 25 GM/50 ML SYRINGE IV ONE (11:16)
[2022-07-20] MEDS ORDERED: GLUCAGON 1 MG VIAL IM PRN (11:23)
[2022-07-20] MEDS ORDERED: hydrALAZINE 20 MG/1 ML VIAL IV PRN (11:23)
[2022-07-20] MEDS ORDERED: ONDANSETRON 4 MG/2 ML VIAL IV PRN (11:23)
[2022-07-20] MEDS ORDERED: ACETAMINOPHEN 325 MG TABLET PO PRN (11:23)
[2022-07-20] MEDS ORDERED: DEXTROSE 10% 1,000 ML IV SCH ×2 (11:30→12:00)
[2022-07-20] MEDS ORDERED: DEXTROSE 50% 25 GM/50 ML SYRINGE IV PRN (11:42)
[2022-07-20] MEDS ORDERED: levETIRAcetam 500 MG/5 ML VIAL IV ONE (11:56)
[2022-07-20] MEDS ORDERED: HEPARIN 10,000 UNIT/10 ML VIAL IV PRN (14:25)
[2022-07-20] MEDS: HEPARIN 5,000 UNIT/1 ML VIAL SUBCUT SCH (19:00)
[2022-07-20] MEDS: cloNIDine 0.1 MG TABLET PO SCH (21:06)
[2022-07-21] MEDS: cloNIDine 0.1 MG TABLET PO SCH ×2 (00:18→22:13)
[2022-07-21] MEDS: HEPARIN 5,000 UNIT/1 ML VIAL SUBCUT SCH ×2 (00:45→22:18)
[2022-07-21 05:53] LABS: Basophils % 0.4 % (0.0-0.8); Eosinophils # 0.1 10*3/uL (0.0-0.87); Eosinophils % 0.7 % (0.00-10.9); Hematocrit 26.1 VOL% (42.0-52.0); Hemoglobin 8.2 GM/DL (14.0-18.0); Immature Granulocytes Absolute 0.08 #; Lymphocytes # 0.5 10*3/uL (1.4-4.0); Lymphocytes % 6.5 % (21.2-54.2); Mean Corpuscular HGB Conc 31.4 GM/DL (32-36); Mean Corpuscular Volume 94.2 FL (87-102); Mean Platelet Volume 11.1 FL (9.6-12.0); Monocytes # 0.2 10*3/uL (0.11-0.8); Monocytes % 2.1 % (1.7-12.7); Neutrophils % 89.3 % (38.7-73.9); Platelet Count 154 T/CUMM (130-400); Red Blood Count 2.77 MC/CUMM (3.8-5.5); Red Cell Distribution Width 15.3 % (9.3-17.3); White Blood Count 8.3 T/CUMM (4-12)
[2022-07-21 06:07] LABS: Calcium 8.3 MG/DL (8.5-10.1); Potassium 4.5 MMOL/L (3.5-5.1)
[2022-07-21] MEDS: ASPIRIN EC 81 MG TABLET PO SCH (09:27)
[2022-07-21] MEDS: PANTOPRAZOLE 40 MG TABLET PO SCH (09:27)
[2022-07-21] MEDS: amLODIPine 10 MG TABLET PO SCH (09:27)
[2022-07-21] MEDS: ATORVASTATIN 40 MG TABLET PO SCH (22:14)
[2022-07-22 05:25] LABS: Calcium 7.7 MG/DL (8.5-10.1); Osmolality,Calculated 286.8 MOS/KG (273-304); Potassium 4.5 MMOL/L (3.5-5.1)
[2022-07-22 06:12] LABS: Basophils % 0.3 % (0.0-0.8); Eosinophils # 0.1 10*3/uL (0.0-0.87); Eosinophils % 1.3 % (0.00-10.9); Hematocrit 22.3 VOL% (42.0-52.0); Hemoglobin 7.2 GM/DL (14.0-18.0); Immature Granulocytes % 0.8 %; Immature Granulocytes Absolute 0.06 #; Lymphocytes # 2.1 10*3/uL (1.4-4.0); Mean Corpuscular HGB Conc 32.3 GM/DL (32-36); Mean Corpuscular Volume 94.9 FL (87-102); Mean Platelet Volume 10.6 FL (9.6-12.0); Monocytes # 0.5 10*3/uL (0.11-0.8); Monocytes % 6.4 % (1.7-12.7); Neutrophils % 65.2 % (38.7-73.9); Platelet Count 155 T/CUMM (130-400); Red Blood Count 2.35 MC/CUMM (3.8-5.5)
[2022-07-22] MEDS ORDERED: SODIUM CHLORIDE 0.9% 1,000 ML IV PRN (07:34)
[2022-07-22] MEDS ORDERED: HEPARIN 10,000 UNIT/10 ML VIAL IV PRN (10:00)
[2022-07-22] MEDS: amLODIPine 10 MG TABLET PO SCH (13:17)
[2022-07-22] MEDS: ASPIRIN EC 81 MG TABLET PO SCH (13:37)
[2022-07-22] MEDS: HEPARIN 5,000 UNIT/1 ML VIAL SUBCUT SCH ×2 (13:37→20:37)
[2022-07-22] MEDS: PANTOPRAZOLE 40 MG TABLET PO SCH (13:37)
[2022-07-22] MEDS: cloNIDine 0.1 MG TABLET PO SCH (20:37)
[2022-07-22] MEDS: ATORVASTATIN 40 MG TABLET PO SCH (20:37)
[2022-07-23 05:50] LABS: Basophils % 0.6 % (0.0-0.8); Eosinophils # 0.1 10*3/uL (0.0-0.87); Hematocrit 28.5 VOL% (42.0-52.0); Hemoglobin 8.9 GM/DL (14.0-18.0); Immature Granulocytes % 0.8 %; Immature Granulocytes Absolute 0.05 #; Lymphocytes # 1.1 10*3/uL (1.4-4.0); Lymphocytes % 16.6 % (21.2-54.2); Mean Corpuscular HGB Conc 31.2 GM/DL (32-36); Mean Corpuscular Volume 94.4 FL (87-102); Mean Platelet Volume 10.8 FL (9.6-12.0); Monocytes # 0.5 10*3/uL (0.11-0.8); Monocytes % 7.2 % (1.7-12.7); Neutrophils % 72.8 % (38.7-73.9); Platelet Count 140 T/CUMM (130-400); Red Blood Count 3.02 MC/CUMM (3.8-5.5); Red Cell Distribution Width 15.1 % (9.3-17.3); White Blood Count 6.6 T/CUMM (4-12)
[2022-07-23 06:11] LABS: Calcium 8.1 MG/DL (8.5-10.1); Osmolality,Calculated 285.7 MOS/KG (273-304); Potassium 4.5 MMOL/L (3.5-5.1)
[2022-07-23] MEDS: PANTOPRAZOLE 40 MG TABLET PO SCH (08:08)
[2022-07-23] MEDS: amLODIPine 10 MG TABLET PO SCH (08:08)
[2022-07-23] MEDS: ASPIRIN EC 81 MG TABLET PO SCH (08:08)
[2022-07-23] MEDS: HEPARIN 5,000 UNIT/1 ML VIAL SUBCUT SCH (08:09)
[2022-07-23 12:07] VITALS: BP 102/58
== END 2022-07-23 13:16 | disposition home or self-care (01) | DRG 638 ==
LOC: N.ED 08:02 → SUATTDRO 11:36 → N.5E 11:36
PROVIDERS: ADMIT Internal Medicine; ATTEND Internal Medicine

== ENCOUNTER 2022-12-08 11:45 | Inpatient (IN) ==
[2022-12-08 13:20] LABS: Basophils % 0.2 % (0.0-0.8); Eosinophils # 0.1 10*3/uL (0.0-0.87); Eosinophils % 0.3 % (0.00-10.9); Immature Granulocytes % 3.5 %; Lymphocytes # 0.9 10*3/uL (1.4-4.0); Lymphocytes % 4.6 % (21.2-54.2); Mean Corpuscular HGB Conc 33.3 GM/DL (32-36); Mean Corpuscular Volume 102.4 FL (87-102); Mean Platelet Volume 9.4 FL (9.6-12.0); Monocytes # 0.4 10*3/uL (0.11-0.8); Monocytes % 1.8 % (1.7-12.7); NRBC # 0.16 10*3/uL; Neutrophils % 89.6 % (38.7-73.9); Platelet Count 355 T/CUMM (130-400); Red Blood Count 1.26 MC/CUMM (3.8-5.5); Red Cell Distribution Width 20.3 % (9.3-17.3); White Blood Count 20.2 T/CUMM (4-12)
[2022-12-08 13:25] LABS: Hemoglobin 4.3 GM/DL (14.0-18.0)
[2022-12-08 13:26] LABS: Hematocrit 12.9 VOL% (42.0-52.0)
[2022-12-08] MEDS ORDERED: cefTRIAXone 1,000 MG in SODIUM CHLORIDE 0.9% 100 ML IV STA (13:37)
[2022-12-08] MEDS ORDERED: SODIUM CHLORIDE 0.9% 1,000 ML IV PRN (13:38)
[2022-12-08 13:39] LABS: Albumin 2.5 G/DL (3.4-5.0); Calcium 7.8 MG/DL (8.5-10.1); Osmolality,Calculated 297.5 MOS/KG (273-304); Potassium 4.7 MMOL/L (3.5-5.1); Total Protein 5.7 G/DL (6.4-8.2)
[2022-12-08] MEDS ORDERED: GLUCAGON 1 MG VIAL IM PRN (14:22)
[2022-12-08] MEDS ORDERED: DEXTROSE 10% 250 ML BAG IV PRN (14:22)
[2022-12-08 15:00] LABS: Urine Appearance Clear (Clear); Urine Color Yellow (Yellow); Urine Specific Gravity 1.015 (1.001-1.035)
[2022-12-08 15:01] LABS: Glucose,Urine (UA) Negative (Negative); Ketones,Urine Negative (Negative); Protein,Urine 100 mg/dL (Negative)
[2022-12-08 15:02] LABS: % Iron Saturation 97.3 % (18-50)
[2022-12-08 15:03] LABS: Bilirubin,Urine Negative (Negative); Blood, Urine Small mg/dL (Negative); Nitrite,Urine Negative (Negative); Urine Urobilinogen 0.2 eU/dL (<2.0)
[2022-12-08 15:04] LABS: RBC,Urine 2 /HPF (0-4); Squamous Epithelial Cell,Urine Occasional /HPF (0-10)
[2022-12-08 15:39] LABS: Eosinophils 1 % (0-10); Lymphocytes 6 % (20-55)
[2022-12-08 15:42] LABS: Macrocytosis Slight; Ovalocytes Few; Polychromasia Few
[2022-12-08 15:44] LABS: Burr Cells Slight; Platelet Estimate Increased
[2022-12-08 15:45] LABS: Anisocytosis 1+
[2022-12-08 15:47] LABS: Basophilic Stippling Few
[2022-12-08 15:47] LABS: Hepatitis B Core IgM Quant 0.08 Index; Hepatitis B Surface Ag Quant < 0.10 Index; Hepatitis B Surface Ag Result Non-Reactive (NonReactive); Hepatitis C Virus Ab Quant < 0.02 Index; Hepatitis C Virus Ab Result Non-Reactive (NonReactive)
[2022-12-08 15:48] LABS: Total Cells Counted 100
[2022-12-08] MEDS: INSULIN LISPRO 100 UNIT/ML SUBCUT SCH ×2 (17:17→21:26)
[2022-12-08] MEDS: ACETAMINOPHEN 325 MG TABLET PO PRN (17:23)
[2022-12-08] MEDS: DOXYCYCLINE HYCLATE 100 MG CAPSULE PO SCH (21:23)
[2022-12-09 05:54] LABS: Basophils % 0.2 % (0.0-0.8); Eosinophils # 0.1 10*3/uL (0.0-0.87); Eosinophils % 0.4 % (0.00-10.9); Immature Granulocytes % 7.5 %; Immature Granulocytes Absolute 1.29 #; Lymphocytes # 1.1 10*3/uL (1.4-4.0); Lymphocytes % 6.4 % (21.2-54.2); Mean Corpuscular HGB Conc 33.5 GM/DL (32-36); Mean Corpuscular Volume 101.3 FL (87-102); Monocytes # 0.5 10*3/uL (0.11-0.8); Monocytes % 2.8 % (1.7-12.7); NRBC # 0.32 10*3/uL; Neutrophils % 82.7 % (38.7-73.9); Platelet Count 311 T/CUMM (130-400); Red Blood Count 1.56 MC/CUMM (3.8-5.5); Red Cell Distribution Width 18.8 % (9.3-17.3); White Blood Count 17.1 T/CUMM (4-12)
[2022-12-09 06:01] LABS: Hematocrit 15.8 VOL% (42.0-52.0); Hemoglobin 5.3 GM/DL (14.0-18.0)
[2022-12-09 06:27] LABS: Albumin 2.6 G/DL (3.4-5.0); Bilirubin,Total 0.8 MG/DL (0.20-1.00); Calcium 7.9 MG/DL (8.5-10.1); Osmolality,Calculated 300.7 MOS/KG (273-304); Total Protein 5.2 G/DL (6.4-8.2)
[2022-12-09 06:45] LABS: Eosinophils 1 % (0-10); Lymphocytes 5 % (20-55); Nucleated Red Blood Cells 1 /100 WBC (0-5); Total Cells Counted 100
[2022-12-09 06:46] LABS: Hypochromia 1+; Macrocytosis Slight; Platelet Estimate Adequate
[2022-12-09] MEDS: INSULIN LISPRO 100 UNIT/ML SUBCUT SCH ×4 (07:43→21:18)
[2022-12-09] MEDS: NON-FORMULARY MEDICATION (Sucroferric Oxyhydroxide [Velphoro] 500 mg tablet,chewable) PO SCH ×3 (09:21→16:02)
[2022-12-09] MEDS: ACETAMINOPHEN 325 MG TABLET PO PRN (10:35)
[2022-12-09] MEDS ORDERED: HEPARIN 10,000 UNIT/10 ML VIAL IV PRN (12:18)
[2022-12-09] MEDS: amLODIPine 10 MG TABLET PO SCH (15:07)
[2022-12-09] MEDS: ASPIRIN EC 81 MG TABLET PO SCH (15:07)
[2022-12-09] MEDS: PANTOPRAZOLE 40 MG TABLET PO SCH (15:07)
[2022-12-09] MEDS: DOXYCYCLINE HYCLATE 100 MG CAPSULE PO SCH ×2 (15:08→21:23)
[2022-12-09] MEDS: cefTRIAXone 1,000 MG in SODIUM CHLORIDE 0.9% 100 ML IV SCH (16:33)
[2022-12-09 17:13] LABS: Hematocrit 22.4 VOL% (42.0-52.0); Hemoglobin 7.9 GM/DL (14.0-18.0)
[2022-12-09] MEDS: HEPARIN DRIP 25,000 UNITS/500 ML PREMIX IV SCH (18:22)
[2022-12-09] MEDS: oxyCODONE/ACETAMINOPHEN 5-325 MG TABLET PO PRN (18:25)
[2022-12-09 21:48] LABS: INR 2.2; PT Patient Result 23.1 SECS (10.1-12.1); Partial Thromboplastin Time 87.1 SECS (23.7-32.9)
[2022-12-10] MEDS: oxyCODONE/ACETAMINOPHEN 5-325 MG TABLET PO PRN (01:39)
[2022-12-10 03:23] LABS: Basophils % 0.1 % (0.0-0.8); Eosinophils # 0.1 10*3/uL (0.0-0.87); Eosinophils % 0.7 % (0.00-10.9); Hematocrit 20.6 VOL% (42.0-52.0); Hemoglobin 7.2 GM/DL (14.0-18.0); Immature Granulocytes % 4.6 %; Lymphocytes # 1.2 10*3/uL (1.4-4.0); Lymphocytes % 7.6 % (21.2-54.2); Mean Corpuscular Volume 92.8 FL (87-102); Mean Platelet Volume 9.4 FL (9.6-12.0); Monocytes # 0.6 10*3/uL (0.11-0.8); Monocytes % 4.1 % (1.7-12.7); Neutrophils % 82.9 % (38.7-73.9); Platelet Count 247 T/CUMM (130-400); Red Blood Count 2.22 MC/CUMM (3.8-5.5); Red Cell Distribution Width 15.9 % (9.3-17.3); White Blood Count 15.3 T/CUMM (4-12)
[2022-12-10 03:38] LABS: Calcium 7.9 MG/DL (8.5-10.1); Osmolality,Calculated 281.2 MOS/KG (273-304); Potassium 4.2 MMOL/L (3.5-5.1)
[2022-12-10 03:44] LABS: Band Neutrophils 1 % (0-10); Eosinophils 1 % (0-10); Lymphocytes 7 % (20-55); Nucleated Red Blood Cells 1 /100 WBC (0-5); Platelet Estimate Adequate; Total Cells Counted 100
[2022-12-10 03:45] LABS: Anisocytosis Slight; Hypochromia Slight
[2022-12-10 03:46] LABS: Macrocytosis Slight
[2022-12-10 03:47] LABS: Polychromasia Slight
[2022-12-10] MEDS: ONDANSETRON 4 MG/2 ML VIAL IV PRN ×2 (05:18→21:56)
[2022-12-10] MEDS: NON-FORMULARY MEDICATION (Sucroferric Oxyhydroxide [Velphoro] 500 mg tablet,chewable) PO SCH ×3 (07:10→16:47)
[2022-12-10] MEDS: INSULIN LISPRO 100 UNIT/ML SUBCUT SCH (07:10)
[2022-12-10] MEDS ORDERED: DOXYCYCLINE HYCLATE 100 MG CAPSULE PO SCH (08:00)
[2022-12-10 10:40] LABS: Hematocrit 22.1 VOL% (42.0-52.0); Hemoglobin 7.7 GM/DL (14.0-18.0)
[2022-12-10] MEDS: ASPIRIN EC 81 MG TABLET PO SCH (14:53)
[2022-12-10] MEDS: PANTOPRAZOLE 40 MG TABLET PO SCH (14:54)
[2022-12-10] MEDS: BACITRACIN OINT 0.9 GM PACK TOP SCH (14:54)
[2022-12-10] MEDS: cefTRIAXone 1,000 MG in SODIUM CHLORIDE 0.9% 100 ML IV SCH (14:54)
[2022-12-10] MEDS: amLODIPine 10 MG TABLET PO SCH (14:54)
[2022-12-10] MEDS ORDERED: VANCOMYCIN INJ 500 MG in SODIUM CHLORIDE 0.9% 100 ML IV PRN (15:32)
[2022-12-10 16:41] LABS: Hematocrit 22.6 VOL% (42.0-52.0); Hemoglobin 7.9 GM/DL (14.0-18.0)
[2022-12-10] MEDS ORDERED: VANCOMYCIN INJ 1,500 MG in SODIUM CHLORIDE 0.9% 500 ML IV ONE (17:00)
[2022-12-11] MEDS: HEPARIN DRIP 25,000 UNITS/500 ML PREMIX IV SCH (04:19)
[2022-12-11] MEDS: amLODIPine 10 MG TABLET PO SCH (09:01)
[2022-12-11] MEDS: BACITRACIN OINT 0.9 GM PACK TOP SCH (09:01)
[2022-12-11] MEDS: NON-FORMULARY MEDICATION (Sucroferric Oxyhydroxide [Velphoro] 500 mg tablet,chewable) PO SCH ×3 (09:02→17:57)
[2022-12-11] MEDS: PANTOPRAZOLE 40 MG TABLET PO SCH (09:02)
[2022-12-11] MEDS: ASPIRIN EC 81 MG TABLET PO SCH (09:02)
[2022-12-11] MEDS ORDERED: EPOETIN ALFA-EPBX 10,000 UNIT/ML VIAL IV SCH (11:30)
[2022-12-11] MEDS: VANCOMYCIN INJ 500 MG in SODIUM CHLORIDE 0.9% 100 ML IV ONE ×2 (16:13→17:57)
[2022-12-11] MEDS ORDERED: HEPARIN 5,000 UNIT/1 ML VIAL IV ONE (23:00)
[2022-12-12] MEDS: PANTOPRAZOLE 40 MG TABLET PO SCH (08:55)
[2022-12-12] MEDS: amLODIPine 10 MG TABLET PO SCH (08:55)
[2022-12-12] MEDS: BACITRACIN OINT 0.9 GM PACK TOP SCH (08:55)
[2022-12-12] MEDS: oxyCODONE/ACETAMINOPHEN 5-325 MG TABLET PO PRN (08:55)
[2022-12-12] MEDS: NON-FORMULARY MEDICATION (Sucroferric Oxyhydroxide [Velphoro] 500 mg tablet,chewable) PO SCH ×3 (08:56→16:22)
[2022-12-12] MEDS: HEPARIN DRIP 25,000 UNITS/500 ML PREMIX IV SCH ×3 (12:00→17:52)
[2022-12-12] MEDS: HYDROmorphone 1 MG/1 ML SYRINGE IV PRN ×2 (17:54→20:55)
[2022-12-13] MEDS: HYDROmorphone 1 MG/1 ML SYRINGE IV PRN ×3 (04:08→17:16)
[2022-12-13 06:57] LABS: Basophils % 0.2 % (0.0-0.8); Eosinophils # 0.3 10*3/uL (0.0-0.87); Eosinophils % 1.6 % (0.00-10.9); Hematocrit 21.9 VOL% (42.0-52.0); Hemoglobin 7.2 GM/DL (14.0-18.0); Immature Granulocytes % 2.5 %; Immature Granulocytes Absolute 0.42 #; Lymphocytes # 1.7 10*3/uL (1.4-4.0); Lymphocytes % 10.1 % (21.2-54.2); Mean Corpuscular HGB Conc 32.9 GM/DL (32-36); Mean Corpuscular Volume 102.8 FL (87-102); Mean Platelet Volume 9.6 FL (9.6-12.0); Monocytes % 5.8 % (1.7-12.7); NRBC # 0.02 10*3/uL; Neutrophils % 79.8 % (38.7-73.9); Platelet Count 238 T/CUMM (130-400); Red Blood Count 2.13 MC/CUMM (3.8-5.5); Red Cell Distribution Width 21.3 % (9.3-17.3); White Blood Count 16.7 T/CUMM (4-12)
[2022-12-13 07:16] LABS: Calcium 8.4 MG/DL (8.5-10.1); Osmolality,Calculated 272.7 MOS/KG (273-304); Potassium 4.1 MMOL/L (3.5-5.1)
[2022-12-13] MEDS ORDERED: DEXTROSE 50% 25 GM/50 ML VIAL IV PRN (07:45)
[2022-12-13] MEDS ORDERED: GLUCAGON 1 MG VIAL IM PRN (07:45)
[2022-12-13] MEDS: PANTOPRAZOLE 40 MG TABLET PO SCH (08:27)
[2022-12-13] MEDS: BACITRACIN OINT 0.9 GM PACK TOP SCH (08:27)
[2022-12-13] MEDS: NON-FORMULARY MEDICATION (Sucroferric Oxyhydroxide [Velphoro] 500 mg tablet,chewable) PO SCH ×3 (08:27→17:16)
[2022-12-13] MEDS: amLODIPine 10 MG TABLET PO SCH (08:27)
[2022-12-14] MEDS ORDERED: FAMOTIDINE 20 MG/2 ML VIAL IV ONE (06:00)
[2022-12-14] MEDS ORDERED: cefTRIAXone 1,000 MG in SODIUM CHLORIDE 0.9% 100 ML IV ONE (06:00)
[2022-12-14] MEDS ORDERED: ONDANSETRON 4 MG/2 ML VIAL IV ONE (06:00)
[2022-12-14] MEDS: HYDROmorphone 1 MG/1 ML SYRINGE IV PRN ×7 (08:03→21:05)
[2022-12-14] MEDS: PANTOPRAZOLE 40 MG TABLET PO SCH (09:17)
[2022-12-14] MEDS: amLODIPine 10 MG TABLET PO SCH (09:17)
[2022-12-14] MEDS: BACITRACIN OINT 0.9 GM PACK TOP SCH (09:17)
[2022-12-14] MEDS: NON-FORMULARY MEDICATION (Sucroferric Oxyhydroxide [Velphoro] 500 mg tablet,chewable) PO SCH ×3 (09:17→18:13)
[2022-12-14] MEDS ORDERED: fentaNYL 100 MCG/2 ML VIAL ONE (09:41)
[2022-12-14] MEDS ORDERED: propofoL 200 MG/20 ML VIAL IV ONE (09:41)
[2022-12-14] MEDS ORDERED: LIDOCAINE 2% 5 ML VIAL ONE (09:41)
[2022-12-14] MEDS ORDERED: MIDAZOLAM 2 MG/2 ML VIAL ONE (09:42)
[2022-12-14] MEDS ORDERED: SODIUM CHLORIDE 0.9% 250 ML IV SCH (10:00)
[2022-12-14] MEDS ORDERED: SUCCINYLCHOLINE 200 MG/10 ML VIAL ONE (11:03)
[2022-12-14] MEDS ORDERED: PHENYLEPHRINE 1 MG/10 ML SYRINGE IV ONE (11:03)
[2022-12-14] MEDS ORDERED: SEVOFLURANE 1 UNIT/15 MINUTE INH ONE (11:03)
[2022-12-14] MEDS ORDERED: ROCURONIUM 50 MG/5 ML VIAL IV ONE (11:03)
[2022-12-14] MEDS ORDERED: MUPIROCIN 2% OINT 22 GM TUBE TOP ONE (11:19)
[2022-12-14] MEDS ORDERED: ONDANSETRON 4 MG/2 ML VIAL IV PRN (11:54)
[2022-12-14] MEDS: ONDANSETRON 4 MG/2 ML VIAL IV PRN (12:07)
[2022-12-14] MEDS ORDERED: VANCOMYCIN INJ 500 MG in SODIUM CHLORIDE 0.9% 100 ML IV ONE (17:00)
[2022-12-14] MEDS ORDERED: DEXTROSE 50% 25 GM/50 ML VIAL IV PRN (22:02)
[2022-12-15] MEDS: HYDROmorphone 1 MG/1 ML SYRINGE IV PRN ×3 (00:39→21:24)
[2022-12-15 05:34] LABS: Basophils % 0.3 % (0.0-0.8); Eosinophils # 0.1 10*3/uL (0.0-0.87); Eosinophils % 1.2 % (0.00-10.9); Hematocrit 21.6 VOL% (42.0-52.0); Immature Granulocytes % 1.3 %; Immature Granulocytes Absolute 0.16 #; Lymphocytes # 0.7 10*3/uL (1.4-4.0); Lymphocytes % 5.5 % (21.2-54.2); Mean Corpuscular HGB Conc 32.4 GM/DL (32-36); Mean Corpuscular Volume 104.9 FL (87-102); Mean Platelet Volume 9.6 FL (9.6-12.0); Monocytes # 0.9 10*3/uL (0.11-0.8); Monocytes % 7.8 % (1.7-12.7); Neutrophils % 83.9 % (38.7-73.9); Platelet Count 287 T/CUMM (130-400); Red Blood Count 2.06 MC/CUMM (3.8-5.5); Red Cell Distribution Width 22.1 % (9.3-17.3); White Blood Count 11.9 T/CUMM (4-12)
[2022-12-15 06:05] LABS: Albumin 2.2 G/DL (3.4-5.0); Bilirubin,Total 0.5 MG/DL (0.20-1.00); Calcium 8.3 MG/DL (8.5-10.1); Potassium 4.3 MMOL/L (3.5-5.1); Total Protein 6.3 G/DL (6.4-8.2)
[2022-12-15] MEDS: PANTOPRAZOLE 40 MG TABLET PO SCH (09:39)
[2022-12-15] MEDS: amLODIPine 10 MG TABLET PO SCH (09:39)
[2022-12-15] MEDS: NON-FORMULARY MEDICATION (Sucroferric Oxyhydroxide [Velphoro] 500 mg tablet,chewable) PO SCH ×3 (09:41→17:27)
[2022-12-15] MEDS ORDERED: SODIUM CHLORIDE 0.9% 1,000 ML IV PRN (11:28)
[2022-12-15] MEDS: BACITRACIN OINT 0.9 GM PACK TOP SCH ×2 (11:52→17:09)
[2022-12-15] MEDS ORDERED: LACTULOSE 20 GM/30 ML UDCUP PO PRN (14:42)
[2022-12-15] MEDS: POLYETHYLENE GLYCOL POWDER 17 GM PACK PO SCH (15:48)
[2022-12-15] MEDS: DOCUSATE SODIUM 100 MG CAPSULE PO SCH (21:23)
[2022-12-16 05:34] LABS: Basophils % 0.2 % (0.0-0.8); Eosinophils # 0.2 10*3/uL (0.0-0.87); Eosinophils % 2.2 % (0.00-10.9); Hematocrit 21.8 VOL% (42.0-52.0); Hemoglobin 6.8 GM/DL (14.0-18.0); Immature Granulocytes % 1.3 %; Immature Granulocytes Absolute 0.11 #; Lymphocytes # 1.1 10*3/uL (1.4-4.0); Lymphocytes % 13.5 % (21.2-54.2); Mean Corpuscular HGB Conc 31.2 GM/DL (32-36); Mean Corpuscular Volume 108.5 FL (87-102); Mean Platelet Volume 9.8 FL (9.6-12.0); Monocytes # 0.8 10*3/uL (0.11-0.8); Monocytes % 9.6 % (1.7-12.7); Neutrophils % 73.2 % (38.7-73.9); Platelet Count 275 T/CUMM (130-400); Red Blood Count 2.01 MC/CUMM (3.8-5.5); Red Cell Distribution Width 21.7 % (9.3-17.3); White Blood Count 8.3 T/CUMM (4-12)
[2022-12-16 06:08] LABS: Calcium 8.4 MG/DL (8.5-10.1); Osmolality,Calculated 277.1 MOS/KG (273-304); Potassium 4.7 MMOL/L (3.5-5.1)
[2022-12-16] MEDS: PANTOPRAZOLE 40 MG TABLET PO SCH (09:02)
[2022-12-16] MEDS: amLODIPine 10 MG TABLET PO SCH (09:02)
[2022-12-16] MEDS: POLYETHYLENE GLYCOL POWDER 17 GM PACK PO SCH (09:04)
[2022-12-16] MEDS: BACITRACIN OINT 0.9 GM PACK TOP SCH (09:06)
[2022-12-16] MEDS: NON-FORMULARY MEDICATION (Sucroferric Oxyhydroxide [Velphoro] 500 mg tablet,chewable) PO SCH ×3 (09:06→17:04)
[2022-12-16] MEDS ORDERED: VANCOMYCIN INJ 500 MG in SODIUM CHLORIDE 0.9% 100 ML IV ONE (17:00)
[2022-12-16] MEDS: DOCUSATE SODIUM 100 MG CAPSULE PO SCH (20:43)
[2022-12-17 06:41] LABS: Albumin 2.1 G/DL (3.4-5.0); Basophils % 0.4 % (0.0-0.8); Bilirubin,Total 0.4 MG/DL (0.20-1.00); Calcium 8.2 MG/DL (8.5-10.1); Eosinophils # 0.2 10*3/uL (0.0-0.87); Hematocrit 25.3 VOL% (42.0-52.0); Hemoglobin 8.1 GM/DL (14.0-18.0); Immature Granulocytes % 1.2 %; Immature Granulocytes Absolute 0.11 #; Lymphocytes # 1.8 10*3/uL (1.4-4.0); Lymphocytes % 19.6 % (21.2-54.2); Mean Corpuscular Volume 103.3 FL (87-102); Mean Platelet Volume 10.1 FL (9.6-12.0); Monocytes # 0.9 10*3/uL (0.11-0.8); Monocytes % 10.2 % (1.7-12.7); NRBC # 0.02 10*3/uL; Neutrophils % 66.6 % (38.7-73.9); Platelet Count 309 T/CUMM (130-400); Potassium 4.8 MMOL/L (3.5-5.1); Red Blood Count 2.45 MC/CUMM (3.8-5.5); Red Cell Distribution Width 21.9 % (9.3-17.3); Total Protein 5.8 G/DL (6.4-8.2); White Blood Count 8.9 T/CUMM (4-12)
[2022-12-17] MEDS: amLODIPine 10 MG TABLET PO SCH (08:51)
[2022-12-17] MEDS: POLYETHYLENE GLYCOL POWDER 17 GM PACK PO SCH (08:51)
[2022-12-17] MEDS: PANTOPRAZOLE 40 MG TABLET PO SCH (08:51)
[2022-12-17] MEDS: NON-FORMULARY MEDICATION (Sucroferric Oxyhydroxide [Velphoro] 500 mg tablet,chewable) PO SCH (08:52)
[2022-12-17 10:50] VITALS: BP 121/63
[2022-12-17] MEDS: BACITRACIN OINT 0.9 GM PACK TOP SCH (11:43)
== END 2022-12-17 11:56 | disposition home or self-care (01) | DRG 987 ==
LOC: EDUNIT# → EDBD → N.EDINP 11:45 → N.ED 11:45 → SUATTDRO 13:49 → N.3E 16:19 → SUATTDRO 12-09 10:10
PROVIDERS: ADMIT Emergency Medicine; ATTEND Internal Medicine